=== PATIENT | male | born 1945 | race Two or more races ===

== ENCOUNTER 2018-10-24 07:41 | Day surgery (SDC) | payer MEDICARE ==
--- NOTE | 2018-10-19 16:31 | Pre-Procedure Note/Attestation ---
Pre-Procedure Note/Attestation Complete Prior to Procedure Planned Procedure: right Procedure Narrative: phaco with IOL Indications for Procedure Pre-Operative Diagnosis: cataract Attestation I attest that I discussed the nature of the procedure; its benefits; risks and complications; and alternatives (and the risks and benefits of such alternatives ), prior to the procedure, with the patient (or the patient's legal career representative). I attest that, if there was a reasonable possibility of needing a blood transfusion, the patient (or the patient's legal career representative) was given the [facility] standardized written summary, pursuant to the [place] Blood Safety Act ([place] Health and Safety Code # 1645, as amended). I attest that I re-evaluated the patient just prior to the surgery and that there has been no change in the patient's H&P, except as documented below: Lon Whittaker MD Oct 19, 2018 16:31
--- NOTE | 2018-10-19 16:33 | Opthalmology H&P ---
Ophthalmology H&P H&P Chief Complaint: decreased vision in right eye HPI Vision Affects Ability to: read, focus/use eyes together HPI Narrative blurry vision Exam Visual Acuity: OD; HM OS; 20/50 Tension: OD; 14 OS; 15 Eye Exam: normal OU: external exam, palpebral fissure-width, marginal reflex distance, levator function, corneas, anterior chambers; findings: lens - OD; NS OS; NS, fundus exam - NPDR OU Assessment/Plan Diagnosis: (1) Nuclear age-related cataract, right eye Treatment Plan: cataract extraction w/ lens implant Goals of Treatment: improvement of vision, enhance quality of life Attestation Attestation The risks and benefits of the surgery as well as alternative procedures were explained to the patient in detail. Lon Whittaker MD Oct 19, 2018 16:33
[2018-10-24] VITALS (8 sets, daily range): BP systolic 125–138; BP diastolic 66–79
[~2018-10-24] VITALS: Ht 162.6 cm; Wt 71.2 kg
[~2018-10-24 07:41] MED LIST: Akten 3.5% 1ml Btl RIGHT EYE ONE; Proparacaine 0.5% Opth Soln 15ml RIGHT EYE ONE; Tetracaine 0.5% Opth 4ml Soln RIGHT EYE ONE
[2018-10-24] MEDS: Diclofenac Sod 0.1% Op Soln RIGHT EYE SCH ×3 (11:34→12:15)
[2018-10-24] MEDS: Tropicamide 1% Opth 15ml Soln RIGHT EYE SCH ×3 (11:34→12:14)
[2018-10-24] MEDS: Phenylephrine 10% Opth Soln 5ml RIGHT EYE SCH ×3 (11:34→12:15)
[2018-10-24] MEDS: Cyclopentolate 1% Opth Sol 2ml RIGHT EYE SCH ×3 (11:34→12:14)
[2018-10-24] MEDS: Tobramycin Op Soln 0.3% 5ml RIGHT EYE SCH ×3 (11:34→12:15)
[2018-10-24] MEDS ORDERED: FOSAMAX70 MG ORAL (11:58)
[2018-10-24] MEDS ORDERED: LOSARTAN POTASS50 MG ORAL (11:58)
[2018-10-24] MEDS ORDERED: FUROSEMIDE40 MG ORAL (11:58)
[2018-10-24] MEDS ORDERED: GLIPIZIDE5 MG ORAL (11:58)
[2018-10-24] MEDS ORDERED: DIGITEK125 MCG PO (11:58)
[2018-10-24] MEDS ORDERED: ATORVASTATIN CA40 MG ORAL (11:58)
[2018-10-24] MEDS ORDERED: TAMSULOSIN HCL0.4 MG ORAL (11:58)
[2018-10-24] MEDS ORDERED: ASPIRIN81 MG ORAL (11:58)
[2018-10-24] MEDS ORDERED: PACERONE200 MG ORAL (11:58)
[2018-10-24] MEDS ORDERED: CARVEDILOL12.5 MG ORAL (11:58)
[2018-10-24] MEDS ORDERED: ISOSORBIDE DINI10 MG ORAL (11:58)
[2018-10-24] MEDS ORDERED: Pred Forte 1% Opth Susp 1ml ONE (12:00)
[2018-10-24] MEDS ORDERED: Sterile Water Irrig 1000ml IRRIG ONE (12:00)
[2018-10-24] MEDS ORDERED: Maxitrol Opth Oint 3.5gm ONE (12:00)
[2018-10-24] MEDS ORDERED: Lidocaine 1% MPF 10mg/ml 5ml ONE (12:00)
[2018-10-24] MEDS ORDERED: Dexamethasone 4mg/ml vial ONE (12:00)
[2018-10-24] MEDS ORDERED: Propofol 200mg/20ml IV ONE (12:00)
[2018-10-24] MEDS ORDERED: LR 1000ml ONE (12:00)
[2018-10-24] MEDS ORDERED: Pilocarpine 2% Opth 15ml Soln ONE (12:00)
[2018-10-24] MEDS ORDERED: NS Irrig 1000ml ONE (12:00)
[2018-10-24] MEDS ORDERED: LR 1000ml 1,000 ML IVLG SCH (12:37)
[2018-10-24] MEDS ORDERED: LORazepam Inj 2mg/ml 1ml IV PRN (12:45)
[2018-10-24] MEDS ORDERED: DiphenhydrAMINE 50mg/ml Inj IVP PRN (12:45)
[2018-10-24] MEDS ORDERED: Atropine Sulfate 0.4mg/ml inj IVP PRN (12:45)
[2018-10-24] MEDS ORDERED: HYDROcodone/Acetamin 7.5/325 tab ORAL PRN (12:45)
[2018-10-24] MEDS ORDERED: Norco 5mg/325mg tab ORAL PRN (12:45)
[2018-10-24] MEDS ORDERED: oxyCODONE HCL/Acetaminophen 5/325mg ORAL PRN (12:45)
[2018-10-24] MEDS ORDERED: Metoclopramide 10mg/2ml Inj IVP PRN (12:45)
[2018-10-24] MEDS ORDERED: Midazolam 2mg/2ml Inj IVP PRN (12:45)
[2018-10-24] MEDS ORDERED: fentaNYL 100 mcg/2 mL IV PRN (12:45)
[2018-10-24] MEDS ORDERED: Meperidine 50mg/ml Inj(FOR RIGORS ONLY) IVP PRN (12:45)
[2018-10-24] MEDS ORDERED: Hydromorphone 0.5mg/0.5ml inj IVP PRN (12:45)
[2018-10-24] MEDS ORDERED: Ketorolac 30mg Inj IV PRN ×2 (12:45)
--- NOTE | 2018-10-24 12:48 | Anethesia Preoperative Eval ---
Anesthesia Pre-op PMH/ROS General Date of Evaluation: Oct 24, 2018 Time of Evaluation: 12:09 Anesthesiologist: Ceci ASA Score: ASA 3 Mallampati Score Class I : Soft palate, uvula, fauces, pillars visible Class II: Soft palate, uvula, fauces visible Class III: Soft palate, base of uvula visible Class IV: Only hard plate visible Mallampati Classification: Class II Surgeon: Remedios Diagnosis: Cataract OD Surgical Procedure: Cat Ext IOL OD Anesthesia History: none Family History: no anesthesia problems Allergies: Coded Allergies: No Known Allergies (Unverified , 10/19/18) Medications: see eMAR Patient NPO?: Yes Past Medical History Cardiovascular: Reports: HTN, CAD - Stent, arrhythmia - Pacemaker, other - HL Gastrointestinal/Genitourinary: Reports: other - BPH Endocrine: Reports: DM HEENT: Reports: cataract (L), cataract (R) Musculoskeletal/Integumentary: Reports: other - Gout Anesthesia Pre-op Phys. Exam Physician Exam Last Vital Signs Date Time Temp Pulse Resp B/P (MAP) Pulse Ox O2 Delivery O2 Flow Rate FiO2 10/24/18 12:02 Room Air 10/24/18 11:50 97.8 64 18 136/66 95 Constitutional: NAD Neurologic: CN 2-12 intact Cardiovascular: RRR Respiratory: CTA Gastrointestinal: S/NT/ND Airway Exam Mallampati Score: Class II MO: full ROM: limited Teeth: missing, intact Anesthesia Pre-op A/P Risk Assessment & Plan Assessment: ASA 3 Plan: GA Status Change Before Surgery: No Edwin Ornelas MD Oct 24, 2018 12:48
--- NOTE | 2018-10-24 12:49 | Immediate Post-Op Evaluation ---
Immediate Post-Op Evalulation Immediate Post-Op Evalulation Procedure: Cat Ext IOL OD Date of Evaluation: Oct 24, 2018 Time of Evaluation: 13:32 IV Fluids: 300 LR Blood Products: 0 Estimated Blood Loss: 1 Urinary Output: 0 Blood Pressure Systolic: 127 Blood Pressure Diastolic: 71 Pulse Rate: 71 Respiratory Rate: 16 O2 Sat by Pulse Oximetry: 95 Temperature (Fahrenheit): 97.6 Pain Score (1-10): 1 Nausea: No Vomiting: No Complications 0 Patient Status: awake, reacts, patent, none Hydration Status: adequate Edwin Ornelas MD Oct 24, 2018 12:49
--- NOTE | 2018-10-24 12:49 | 48 Hour Post Anesthesia Eval ---
Post Anesthesia Evaluation Procedure: Cat Ext IOL OD Date of Evaluation: Oct 24, 2018 Time of Evaluation: 15:43 Blood Pressure Systolic: 124 0: 72 Pulse Rate: 71 Respiratory Rate: 16 Temperature (Fahrenheit): 97.6 O2 Sat by Pulse Oximetry: 95 Airway: patent Nausea: No Vomiting: No Pain Intensity: 1 Hydration Status: adequate Cardiopulmonary Status: Stable Mental Status/LOC: patient returned to baseline Follow-up Care/Observations: 0 Post-Anesthesia Complications: 0 Follow-up care needed: ready to discharge Edwin Ornelas MD Oct 24, 2018 12:49
[2018-10-24] MEDS ORDERED: Sodium Hyaluronate 14 mg/ml 0.85ml ONE (13:35)
[2018-10-24] MEDS ORDERED: BSS 500ml btl ONE (13:35)
[2018-10-24] MEDS ORDERED: BSS 15ml BTL ONE (13:35)
[2018-10-24] MEDS ORDERED: EPINEPHrine 1mg/1ml Amp ONE (13:35)
[2018-10-24] MEDS ORDERED: Povidone-Iodine 5% opth solution ONE (13:35)
--- NOTE | 2018-10-25 19:50 | Operative Note - PDOC ---
Operative Note Operative Note Date of Operation/Procedure: Oct 24, 2018 Chief Complaint: blurry vision Pre-op Diagnosis: cataract, OD Procedure: phaco with IOL Post-op Diagnosis: Pseudophakia Post-op Diagnosis: same as pre-op Operative Findings: consistent w/pre-op dx studies Surgeon: Remedios Anesthesiologist: Dom Anesthesia: MAC Specimen: none Complications: none Condition: stable Fluids: LR Estimated Blood Loss: none Drains: none Implant(s) used?: Yes Indications for Procedure cataract Description of Procedure This patient has been complaining visually significant cataract in the affected eye with the best corrected visual acuity under moderate glare conditions worse. The patient complains of difficulties with glare in performing activities of daily living and wants to manage personal affairs with comfort and accuracy and see well enough to move with safety at home and outdoors. ~~~ The risks, benefits and alternatives of the procedure were discussed with the patient in the office prior to scheduling surgery. All questions from the patient were answered after the surgical procedure was explained in detail. The risks of the procedure as explained to the patient include, but are not limited to, pain, infection, bleeding, loss of vision, retinal detachment, need for further surgery, loss of lens nucleus, double vision, etc. Alternative procedures were discussed which include, to do nothing or seek a second opinion. Informed consent for this procedure was obtained from the patient. The patient was referred to a primary care physician for a cardiopulmonary clearance prior to surgery, after proper evaluation was done patient was properly scheduled for outpatient surgery. The patient was brought to the operating room where the anesthesiologist established I.V. lines and cardiac monitoring leads. Mild intravenous sedation was administered. Using a solution containing 0.75% Marcaine and 2% lidocaine with Wydase, a peribulbar block was administered to the eye. ~The patient was then prepared with a 5% solution of povidone-iodine to the conjunctival fornix and lashes, and a 10% solution of povidone-iodine to the lids and periorbital skin. The patient was then draped in the usual sterile fashion. A lid speculum was then placed in the operative eye. A keratome blade was then used to create a biplanar incision into the anterior chamber. Viscoelastics was then instilled into the anterior chamber. A capsulorrhexis was then fashioned with an utrata forceps. BSS and a cannula were then used to hydrodissect and hydro delineate the lens. Paracentesis incision was made at 3 o'clock with sharp blade. The phacoemulsification unit, after being properly adjusted ~and tested, was then used to emulsify the nucleus. Residual cortical material was aspirated with the irrigation and aspiration unit. Healon was then instilled into the anterior chamber. The corneal wound was then enlarged to the size of the optic with the jose luis keratome blade. The intraocular lens was then inspected for right ~power and size and thought to be satisfactory. Then the lens was gently placed in the capsular bag. Positioning within the capsular bag was confirmed by direct visualization. Optic centration was accomplished with a Sinskey hook. Viscoelastics ~was removed from the anterior chamber using the irrigation and aspiration unit. The corneal wound was then tested for leaks and none were found. The lid speculum were then removed. Sponge and needle counts were correct. An eye patch and shield were placed over the operative eye. The patient was taken to the recovery room in stable condition. There were no complications. The patient tolerated the procedure well. The patient was then transferred to the ambulatory surgery unit in stable and satisfactory condition , was given detailed written instructions and asked to follow up ~in the office the next day. Lon Whittaker MD Oct 25, 2018 19:50
--- NOTE | 2018-10-25 19:50 | Brief Operative Note ---
Immediate Post Operative Note Operative Note Chief Complaint: blurry vision Pre-op Diagnosis: cataract, OD Procedure: phaco with IOL Post-op Diagnosis: Pseudophakia Post-op Diagnosis: same as pre-op Findings: consistent w/pre-op dx studies Surgeon: Remedios Anesthesiologist: Dom Anesthesia: MAC Specimen: none Complications: none Condition: stable Fluids: LR Estimated Blood Loss: none Drains: none Implant(s) used?: Yes Lon Whittaker MD Oct 25, 2018 19:50
== END 2018-10-24 14:30 | disposition home or self-care (01) ==
LOC: SUR 07:41
DX: H25.11 Age-related nuclear cataract, right eye (principal); E78.5 Hyperlipidemia, unspecified; M81.0 Age-related osteoporosis without current pathological fracture; E78.00 Pure hypercholesterolemia, unspecified; Z95.810 Presence of automatic (implantable) cardiac defibrillator; Z95.1 Presence of aortocoronary bypass graft; I13.0 Hypertensive heart and chronic kidney disease with heart failure and stage 1 through stage 4 chronic kidney disease, or unspecified chronic kidney disease; E11.22 Type 2 diabetes mellitus with diabetic chronic kidney disease; N18.9 Chronic kidney disease, unspecified
CPT/HCPCS: 66984; 82962; J0171; J1100; J2250; J2704; J3370; V2632; 94003; 94150